=== PATIENT | male | born 1995 | race Two or more races ===

== ENCOUNTER 2017-05-19 17:08 | Emergency (ER) | payer OTHER ==
[2017-05-19 17:13] VITALS: O2SAT 93
--- NOTE | 2017-05-19 17:28 | EDPHY ---
H & P Stated Complaint: skateboarding, hit a pole, right arm and left hand lacs Time Seen by Provider: 05/19/17 17:15 HPI/ROS: CHIEF COMPLAINT: Left finger and right elbow laceration post skateboarding injury HISTORY OF PRESENT ILLNESS: 21-year-old immunocompetent male, right-hand dominant, up-to-date tetanus, arrives via private vehicle complaining of laceration to his left 4th and 5th digit palmar aspect and right ulnar antecubital fossa when he was skateboarding, fell and grabbed an object to keep him from falling. Was metallic object have a non glass, no fracture of object. Denies paresthesias to the bilateral upper extremity. No sensory or motor deficit. Occurred shortly prior to arrival. No head injury. PHYSICAL EXAM (Prior to examination, patient consented to physical exam, hands were washed and my usual and customary physical exam procedures followed) 1) GENERAL: Well-developed, well-nourished, alert and oriented. Appears to be in no acute distress. 2) HEAD: Normocephalic 3) HEENT: sclera anicteric 4) LUNGS: Breathing comfortably. [ 5) right upper extremity: On the antecubital fossa, ulnar aspect he has a 3 cm well-demarcated laceration, hemostatic. Radial ulnar median nerve function intact distally with soft compartments, no foreign bodies visualized or palpated. Distal pulses are brisk with brisk capillary refill. Full sensation distally. Left upper extremity: On the left 3rd, 4th and 5th digit palmar aspect the patient has skin avulsion over the middle phalanx with no visible flexor tendon injury. FDP, FDS function intact. Each laceration measures 2.5 cm. - Personal History Current Tetanus/Diphtheria Vaccine: Unsure Current Tetanus Diphtheria and Acellular Pertussis (TDAP): Unsure - Medical/Surgical History Hx Asthma: No Hx Chronic Respiratory Disease: No Hx Diabetes: No Hx Cardiac Disease: No Hx Renal Disease: No Hx Cirrhosis: No Hx Alcoholism: No Hx HIV/AIDS: No Hx Splenectomy or Spleen Trauma: No Other PMH: none reported - Social History Smoking Status: Never smoked Constitutional: Initial Vital Signs Heart Rate 90 05/19/17 17:10 Respiratory Rate 20 05/19/17 17:10 Blood Pressure 155/81 H 05/19/17 17:10 O2 Sat (%) 93 05/19/17 17:10 O2 Delivery Mode Room Air O2 (L/minute) 37 Allergies/Adverse Reactions: No Known Allergies Allergy (Unverified 05/19/17 17:10) Home Medications: Medication Instructions Recorded Cephalexin [Keflex] 500 mg PO TID 7 Days cap 05/19/17 Medical Decision Making - Diagnostics Imaging Results: Imaging Impressions Elbow X-Ray 05/19/17 17:24 Impression: Nothing acute identified. 2. Right Elbow, Three Views History: Pain post trauma. Skateboarding injury. Laceration. Findings: On the lateral view there is a short linear calcification or cortical fragment adjacent to the proximal dorsal ulna. Dorsal soft tissue swelling is centered more proximally over the olecranon. No elbow joint effusion or malalignment is identified. No radiopaque foreign material or intra-articular gas is identified. Impression: Small dorsal bone chip or radiopaque foreign body of undetermined chronicity. Results discussed with ISATU House at 5:56 PM. Hand X-Ray 05/19/17 17:24 Impression: Nothing acute identified. 2. Right Elbow, Three Views History: Pain post trauma. Skateboarding injury. Laceration. Findings: On the lateral view there is a short linear calcification or cortical fragment adjacent to the proximal dorsal ulna. Dorsal soft tissue swelling is centered more proximally over the olecranon. No elbow joint effusion or malalignment is identified. No radiopaque foreign material or intra-articular gas is identified. Impression: Small dorsal bone chip or radiopaque foreign body of undetermined chronicity. Results discussed with ISATU House at 5:56 PM. Procedures: Procedure: Laceration repair 1., left hand I explained the indications, risks and benefits for both laceration repair and anesthetic administration. Verbal consent was obtained from the patient . The laceration on the left 3rd 4th 5th digits was anesthetized using 0.5% bupivicaine without epinephrine digital nerve block. After anesthetic administered the patient was observed for a period of time and had no apparent adverse effects. The wound was cleaned, prepped, draped in normal sterile fashion and explored to its base. No foreign body seen, no foreign bodies palpated. There were no deep structures involved. Tendon is visualized however no FDP, FDS defects identified on exam. The 3rd digit is closed with 7 simple interrupted 5 0 Prolene sutures, the 4th digit closed with 8 simple interrupted 5 O Prolene sutures, the 5th digit is closed with 10 simple interrupted 5 O Prolene sutures. The wound repair was complex. The procedure was performed by myself. Patient has been informed that scarring will occur, although efforts have been made to minimize this. Procedure: Splint #1 Neuro to minimize stress on the laceration sites each digit was addressed independently with bandaging and splinting material After application of the splint I returned and re-examined the patient. The splint was adequately immobilizing the joint and distal to the splint the patient's circulation and sensation were intact. Patient shows no signs of compartment syndrome. Was given orthopedic precautions. Procedure: Laceration repair # 2 right arm I explained the indications, risks and benefits for both laceration repair and anesthetic administration. Verbal consent was obtained from the patient and parent. The laceration on the right antecubital fossa ulnar aspect was anesthetized using 0.5% bupivicaine with epinephrine . After anesthetic administered the patient was observed for a period of time and had no apparent adverse effects. The wound was cleaned, prepped, draped in normal sterile fashion and explored to its base. No foreign body seen, no foreign bodies palpated. There were no deep structures involved. No tendon injury was identified. The wound was repaired with 7 simple interrupted 4 0 Prolene sutures. The wound repair was simple. The procedure was performed by myself. Patient has been informed that scarring will occur, although efforts have been made to minimize this. Procedure: Splint #2 A right upper extremity sling was applied by ER aviation electrical technician. After application of the splint I returned and re-examined the patient. The splint was adequately immobilizing the joint and distal to the splint the patient's circulation and sensation were intact. Patient shows no signs of compartment syndrome. Was given orthopedic precautions. ED Course/Re-evaluation: This patient was re-evaluated with serial examinations. I reviewed his imaging results with him particularly his right elbow interpretation by radiologist showing a questionable foreign body versus small avulsion fracture. Patient does no prior history of right elbow fracture. He has no complaints of right elbow pain either palpation or with range of motion. Nonetheless he has been informed that a small open fracture is not fully ruled out. At this time I do not think that emergent orthopedic consultation is indicated however he will necessitate follow up with Orthopedics this week (today is Sunday evening). In the meantime he started on prophylactic Keflex. Regarding his multiple lacerations to his left 3rd 4th 5th digits, there is no obvious flexor tendon damage to these digits how these are complex lacerations that will require follow up with Hand surgery. He is already on prophylactic Keflex. These have been splinted order minimize stress on the laceration site and he will need follow-up with on-call hand surgery Dr. Nahum Pickens in the next 2-3 days. He has mother feel comfortable with this plan. I believe themto be competent decision makers.Care of patient under supervision of secondary supervising physician Dr Acharya who independently evaluated patient. - Data Points Medications Given: Discontinued Medications Cephalexin HCl (Keflex) 500 mg PO EDNOW ONE PRN Reason: Protocol Stop: 05/19/17 17:30 Last Admin: 05/19/17 17:40 Dose: 500 mg Departure - Departure Disposition: Home, Routine, Self-Care Clinical Impression: Fall from skateboard Qualifiers: Encounter type: initial encounter Qualified Code(s): V00.131A - Fall from skateboard, initial encounter Laceration of right upper arm Qualifiers: Encounter type: initial encounter Qualified Code(s): S41.111A - Laceration without foreign body of right upper arm, initial encounter Laceration of left index finger Qualifiers: Encounter type: initial encounter Damage to nail status: without damage Foreign body presence: without foreign body Qualified Code(s): S61.211A - Laceration without foreign body of left index finger without damage to nail, initial encounter Condition: Good Instructions: Care For Your Stitches (ED), Laceration (ED) Additional Instructions: Return to the ER if you develop redness, swelling, discharge, warmth to the wound, red streaks going up your arm , or any other symptoms that concern you. Referrals: Nahum Pickens MD [Medical Doctor] - 2-3 days, call for appt. Prescriptions: Cephalexin [Keflex] 500 mg PO TID 7 Days cap
[2017-05-19] MEDS ORDERED: CEPHALEXIN 500 MG CAP PO ONE (17:29)
[2017-05-19 18:56] VITALS: BP 120/85; PULSE 76; RESP 16; TEMP 97.9
== END 2017-05-19 19:30 | disposition home or self-care (01) ==
DX: S41.111A Laceration without foreign body of right upper arm, initial encounter (principal); S61.213A Laceration without foreign body of left middle finger without damage to nail, initial encounter; S61.215A Laceration without foreign body of left ring finger without damage to nail, initial encounter; S61.217A Laceration without foreign body of left little finger without damage to nail, initial encounter; V00.131A Fall from skateboard, initial encounter; Y93.51 Activity, roller skating (inline) and skateboarding